=== PATIENT | female | born 1995 | race Caucasian/White ===

== ENCOUNTER 2020-10-10 10:22 | Inpatient (IN) | payer MEDICAID ==
[2020-10-10] MEDS ORDERED: Ondansetron 4 MG/2 ML SDV IVPUSH PRN ×2 (19:22→21:28)
[2020-10-10] MEDS ORDERED: Sodium Chloride 0.9% 10 ML Syringe FLUSH PRN (19:22)
[2020-10-10] MEDS ORDERED: Nalbuphine 10 MG/1 ML Vial IVPUSH PRN (19:22)
--- NOTE | 2020-10-10 19:25 | PCM.LDHP ---
L&D History of Present Illness - General Date of Service: 10/10/20 Admit Problem/Dx: Patient Status Order with Admit Dx/Problem 10/10/20 19:23 Patient Status [ADT] Routine Admission Diagnosis/Problem Admission Diagnosis/Problem Normal in third trimester Source of Information: Patient History Limitations: Reports: No Limitations - History of Present Illness Introduction:: Patient is a 25 y/o at 40 0/7 wks who presents for elective IOL. Doing well. 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): Psychiatric History: Reports: Depression Dermatologic History: Reports: Eczema - Past Surgical History HEENT Surgical History: Reports: Oral Surgery (tooth extraction), Tonsillectomy GI Surgical History: Reports: Appendectomy Social & Family History - Tobacco Use Tobacco Use Status *Q: Former Tobacco User - Alcohol Use Alcohol Use History: No - Recreational Drug Use Recreational Drug Use: No H&P Review of Systems - Review of Systems: Review Of Systems: See Below General: Reports: No Symptoms Pulmonary: Reports: No Symptoms Cardiovascular: Reports: No Symptoms Gastrointestinal: Reports: No Symptoms Genitourinary: Reports: No Symptoms Musculoskeletal: Reports: No Symptoms Psychiatric: Reports: No Symptoms Neurological: Reports: No Symptoms L&D Exam - Exam Exam: See Below - OB Specific Contraction Intensity: Irritability Movement: Active Heart Tones: Present Heart Tones per Min: 140 Heart Rate (FHR) Variability: Moderate (6-25 bmp) Presentation: Vertex - Rose Score Rose Score Cervix Position: Midposition Rose Score Consistency: Medium Rose Score Effacement: 51-70% Rose Score Dilation: 1-2 cm Rose Score Infant's Station: -2 Rose Score Total: 6 - Exam General: Alert, Oriented, Cooperative Lungs: Clear to Auscultation, Normal Respiratory Effort Cardiovascular: Regular Rate, Regular Rhythm GI/Abdominal Exam: Soft, Non-Tender Genitourinary: Normal external exam Extremities: Normal Inspection Skin: Warm, Dry, Intact - Patient Data Result Diagrams: 10/10/20 19:48 - Problem List (1) 40 weeks gestation of SNOMED Code(s): 82126359 ICD Code: Z3A.40 - 40 WEEKS GESTATION OF Status: Acute Current Visit: Yes Problem List Initiated/Reviewed/Updated: Yes Orders Last 24hrs: Active Orders 24 hr Category Date Time Status Patient Status [ADT] Routine ADT 10/10/20 19:23 Ordered Communication Order [RC] ASDIRECTED Care 10/10/20 19:23 Ordered Communication Order [RC] ASDIRECTED Care 10/10/20 19:23 Ordered Communication Order [RC] ASDIRECTED Care 10/10/20 19:23 Ordered Heart Tones [RC] ASDIRECTED Care 10/10/20 19:23 Ordered Monitoring [RC] INTERMITTENT Care 10/10/20 19:23 Ordered Non Stress Test [RC] PER UNIT ROUTINE Care 10/10/20 19:23 Ordered Notify Provider [RC] ASDIRECTED Care 10/10/20 19:23 Ordered Notify Provider [RC] PRN Care 10/10/20 19:23 Ordered Peripheral IV Care [RC] . DIRECTED Care 10/10/20 19:23 Ordered Up ad Samara [RC] ASDIRECTED Care 10/10/20 19:23 Ordered Vaginal Exam [RC] ASDIRECTED Care 10/10/20 19:23 Ordered Vital Signs [RC] ASDIRECTED Care 10/10/20 19:23 Ordered Regular Diet [DIET] Diet 10/10/20 Dinner Ordered CBC W/O DIFF,HEMOGRAM [HEME] Routine Lab 10/10/20 19:22 Ordered CORONAVIRUS COVID-19 TYSON [MOLEC] Stat Lab 10/10/20 19:24 Ordered RAPID PLASMA REAGIN,RPR [CHEM] Routine Lab 10/10/20 19:23 Ordered TYPE AND SCREEN [BBK] Routine Lab 10/10/20 19:22 Ordered Lactated Ringers [Ringers, Lactated] 1,000 ml Med 10/10/20 19:30 Ordered IV ASDIRECTED Nalbuphine [Nubain] Med 10/10/20 19:22 Ordered 10 mg IVPUSH Q2H PRN Ondansetron [Zofran] Med 10/10/20 19:22 Ordered 4 mg IVPUSH Q4H PRN Oxytocin/Lactated Ringers [Pitocin in LR 10 Units/1,000 Med 10/10/20 19:30 Ordered ML] 10 unit in 1,000 ml IV .CONTINUOUS Oxytocin/Lactated Ringers [Pitocin in LR 10 Units/1,000 Med 10/10/20 19:30 Ordered ML] 10 unit in 1,000 ml IV TITRATE Sodium Chloride 0.9% [Saline Flush] Med 10/10/20 19:22 Ordered 10 ml FLUSH ASDIRECTED PRN Electronic Heart Tones Ext w TOCO [WOMSER] Oth 10/10/20 19:23 Ordered Routine Electronic Heart Tones Internal [WOMSER] Per Unit Ot 10/10/20 19:23 Ordered Routine Peripheral IV Insertion Adult [OM.PC] Routine Oth 10/10/20 19:23 Ordered Resuscitation Status Routine Resus Stat 10/10/20 19:22 Ordered Assessment/Plan Comment:: * Labs * GBS negative * Cytotec and then pitocin for IOL * Pain management per patient preference * Anticipate
[2020-10-10] MEDS ORDERED: Oxytocin/Lactated Ringers 10 UNIT/1,000 ML BAG IV SCH ×2 (19:30)
[2020-10-10] MEDS ORDERED: Misoprostol 25 MCG (1/4 of 100 MCG) Tab VAG PRN (20:11)
[2020-10-10] MEDS ORDERED: ePHEDrine 50 MG/ML SDV IVPUSH PRN (21:28)
[2020-10-10] MEDS ORDERED: fentaNYL 100 MCG/2 ML SDV EPIDUR PRN (21:28)
[2020-10-10] MEDS ORDERED: Bupivacaine/fentaNYL/NS 100 ML Bag EPIDUR SCH (21:30)
--- NOTE | 2020-10-10 21:33 | PCM.PREANE ---
Preanesthetic Assessment - Procedure Proposed Procedure: Epidural - Anesthesia/Transfusion/Family Hx Anesthesia History: Prior Anesthesia Without Reaction Family History of Anesthesia Reaction: No Transfusion History: No Prior Transfusion(s) Intubation History: Unknown - Review of Systems Pulmonary: No Symptoms (Covid +: off quarantine one week ago/ Former smoker, ETOH: occasionalyy) Cardiovascular: No Symptoms Gastrointestinal: No Symptoms (GERD), Nausea Neurological: No Symptoms (Sciatic nerve issues on the left side) Other: Reports: Sinus Problem (seasonal allergies), Depression, Anxiety - Physical Assessment NPO Status Date: 10/10/20 NPO Status Time: 18:00 Vital Signs: Last Vital Signs Temp 36.7 C 10/10/20 20:25 Pulse 98 10/10/20 20:25 Resp 16 10/10/20 20:25 BP 111/73 10/10/20 20:25 Pulse Ox 100 10/10/20 20:25 Height: 1.83 m Weight: 139.389 kg ASA Class: 3 Mental Status: Alert & Oriented x3 Airway Class: Mallampati = 2 Dentition: Reports: Normal Dentition, Caries Thyro-Mental Finger Breadths: 3 Mouth Opening Finger Breadths: 3 ROM/Head Extension: Full Lungs: Clear to Auscultation, Normal Respiratory Effort Cardiovascular: Regular Rate, Regular Rhythm, No Murmurs - Lab Values: Laboratory Last Values WBC 11.33 K/mm3 (3.98-10.04) H 10/10/20 19:48 RBC 3.63 M/mm3 (3.98-5.22) L 10/10/20 19:48 Hgb 11.7 gm/dl (11.2-15.7) 10/10/20 19:48 Hct 34.6 % (34.1-44.9) 10/10/20 19:48 MCV 95.3 fl (79.4-94.8) H 10/10/20 19:48 MCH 32.2 pg (25.6-32.2) 10/10/20 19:48 MCHC 33.8 g/dl (32.2-35.5) 10/10/20 19:48 RDW Std Deviation 43.9 fL (36.4-46.3) 10/10/20 19:48 Plt Count 168 K/mm3 (182-369) L 10/10/20 19:48 MPV 11.8 fl (9.4-12.3) 10/10/20 19:48 Above labs reviewed and noted and within acceptable ranges to proceed with epidural if desired. 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: Psychiatric History: Reports: Depression Endocrine/Metabolic History: Reports: Obesity/BMI 30+ Hematologic History: Reports: Anemia Dermatologic History: Reports: Eczema - Past Surgical History HEENT Surgical History: Reports: Oral Surgery (tooth extraction), Tonsillectomy GI Surgical History: Reports: Appendectomy - SUBSTANCE USE Tobacco Use Status *Q: Former Tobacco User Recreational Drug Use History: No - HOME MEDS Home Medications: Home Meds Fexofenadine [Sonja] 180 mg PO DAILY 10/10/20 [History] Pnv No.95/Ferrous Fum/Folic AC [Prenavite Tablet] 1 each PO DAILY 10/10/20 [History] - CURRENT (IN HOUSE) MEDS Current Meds: Current Medications Ephedrine Sulfate (Ephedrine 50 Mg/Ml Sdv) 5 mg IVPUSH ASDIRECTED PRN PRN Reason: Hypotension Fentanyl (Fentanyl 100 Mcg/2 Ml Sdv) 100 mcg EPIDUR Q3H PRN PRN Reason: Pain Fentanyl/Bupivacaine HCl (Bupivacaine/Fentanyl/Ns 100 Ml Bag) 100 ml EPIDUR ASDIRECTED WILBERT Oxytocin/Lactated Ringer's (Pitocin In Lr 10 Units/1,000 Ml) 10 unit in 1,000 mls @ 12 mls/hr IV TITRATE WILBERT; Protocol Oxytocin/Lactated Ringer's (Pitocin In Lr 10 Units/1,000 Ml) 10 unit in 1,000 mls @ 500 mls/hr IV .CONTINUOUS WILBERT Lactated Ringer's (Ringers, Lactated) 1,000 mls @ 40 mls/hr IV ASDIRECTED WILBERT Miscellaneous Medication (Phenylephrine Hcl In 0.9% Nacl 1 Mg/10 Ml Syringe) 0.1 mg IVPUSH Q10M PRN PRN Reason: Hypotension Misoprostol (Misoprostol 25 Mcg (1/4 Of 100 Mcg) Tab) 25 mcg VAG Q4HR PRN PRN Reason: cervical ripening Last Admin: 10/10/20 20:20 Dose: 25 mcg Documented by: Nalbuphine HCl (Nalbuphine 10 Mg/1 Ml Vial) 10 mg IVPUSH Q2H PRN PRN Reason: Pain Ondansetron HCl (Ondansetron 4 Mg/2 Ml Sdv) 4 mg IVPUSH Q4H PRN PRN Reason: Nausea/Vomiting Ondansetron HCl (Ondansetron 4 Mg/2 Ml Sdv) 4 mg IVPUSH ONETIME PRN PRN Reason: Nausea/Vomiting Sodium Chloride (Sodium Chloride 0.9% 10 Ml Syringe) 10 ml FLUSH ASDIRECTED PRN PRN Reason: Keep Vein Open
[2020-10-11] MEDS: Lactated Ringers 1,000 ML IV SCH ×2 (00:50→02:34)
--- NOTE | 2020-10-11 04:39 | PCM.PNLD ---
Labor Progress Note - VS & Meds Vital Signs: Last Vital Signs Temp 36.7 C 10/10/20 20:25 Pulse 98 10/10/20 20:25 Resp 16 10/10/20 20:25 BP 111/73 10/10/20 20:25 Pulse Ox 100 10/10/20 20:25 Active Medications: Current Medications Ephedrine Sulfate (Ephedrine 50 Mg/Ml Sdv) 5 mg IVPUSH ASDIRECTED PRN PRN Reason: Hypotension Fentanyl (Fentanyl 100 Mcg/2 Ml Sdv) 100 mcg EPIDUR Q3H PRN PRN Reason: Pain Last Admin: 10/11/20 00:56 Dose: 100 mcg Documented by: Fentanyl/Bupivacaine HCl (Bupivacaine/Fentanyl/Ns 100 Ml Bag) 100 ml EPIDUR ASDIRECTED WILBERT Last Admin: 10/11/20 00:55 Dose: 100 ml Documented by: Oxytocin/Lactated Ringer's (Pitocin In Lr 10 Units/1,000 Ml) 10 unit in 1,000 mls @ 12 mls/hr IV TITRATE WILBERT; Protocol Last Titration: 10/11/20 03:29 Dose: 0 munits/min, 0 mls/hr Documented by: Oxytocin/Lactated Ringer's (Pitocin In Lr 10 Units/1,000 Ml) 10 unit in 1,000 mls @ 500 mls/hr IV .CONTINUOUS WILBERT Lactated Ringer's (Ringers, Lactated) 1,000 mls @ 40 mls/hr IV ASDIRECTED WILBERT Last Admin: 10/11/20 02:34 Dose: 40 mls/hr Documented by: Miscellaneous Medication (Phenylephrine Hcl In 0.9% Nacl 1 Mg/10 Ml Syringe) 0.1 mg IVPUSH Q10M PRN PRN Reason: Hypotension Misoprostol (Misoprostol 25 Mcg (1/4 Of 100 Mcg) Tab) 25 mcg VAG Q4HR PRN PRN Reason: cervical ripening Last Admin: 10/10/20 20:20 Dose: 25 mcg Documented by: Nalbuphine HCl (Nalbuphine 10 Mg/1 Ml Vial) 10 mg IVPUSH Q2H PRN PRN Reason: Pain Ondansetron HCl (Ondansetron 4 Mg/2 Ml Sdv) 4 mg IVPUSH Q4H PRN PRN Reason: Nausea/Vomiting Ondansetron HCl (Ondansetron 4 Mg/2 Ml Sdv) 4 mg IVPUSH ONETIME PRN PRN Reason: Nausea/Vomiting Sodium Chloride (Sodium Chloride 0.9% 10 Ml Syringe) 10 ml FLUSH ASDIRECTED PRN PRN Reason: Keep Vein Open - Uterine Contractions Uterine Monitoring Mode: External [place] Contraction Intensity: Mild to Moderate Uterine Resting Tone: Soft - Monitoring Monitor Mode: External Ultrasound Heart Rate (FHR) Baseline: 115 Heart Rate (FHR) Variability: Moderate (6-25 bmp) Accelerations: Present, 15x15 Decelerations: Variable Strip Review: Category II - Vaginal Exam Dilation (cm): 3 Effacement (Percent): 75 Station: -2 Cervical Position: Midposition - Labor Progress (Free Text) Labor Progress: Patient received one dose of Cytotec overnight. Then was transitioned to pitocin up to 4, but had some variables. Currently off and patient comfortable with epidural. Exam shows good change. AROM performed with release of clear fluid. IUPC placed. Continue present management. Will start pitocin again if/when needed
--- NOTE | 2020-10-11 07:00 | PCM.PNLD ---
Labor Progress Note - VS & Meds Vital Signs: Last Vital Signs Temp 36.7 C 10/10/20 20:25 Pulse 98 10/10/20 20:25 Resp 16 10/10/20 20:25 BP 111/73 10/10/20 20:25 Pulse Ox 100 10/10/20 20:25 Active Medications: Current Medications Ephedrine Sulfate (Ephedrine 50 Mg/Ml Sdv) 5 mg IVPUSH ASDIRECTED PRN PRN Reason: Hypotension Fentanyl (Fentanyl 100 Mcg/2 Ml Sdv) 100 mcg EPIDUR Q3H PRN PRN Reason: Pain Last Admin: 10/11/20 00:56 Dose: 100 mcg Documented by: Fentanyl/Bupivacaine HCl (Bupivacaine/Fentanyl/Ns 100 Ml Bag) 100 ml EPIDUR ASDIRECTED WILBERT Last Admin: 10/11/20 00:55 Dose: 100 ml Documented by: Oxytocin/Lactated Ringer's (Pitocin In Lr 10 Units/1,000 Ml) 10 unit in 1,000 mls @ 12 mls/hr IV TITRATE WILBERT; Protocol Last Titration: 10/11/20 03:29 Dose: 0 munits/min, 0 mls/hr Documented by: Oxytocin/Lactated Ringer's (Pitocin In Lr 10 Units/1,000 Ml) 10 unit in 1,000 mls @ 500 mls/hr IV .CONTINUOUS WILBERT Lactated Ringer's (Ringers, Lactated) 1,000 mls @ 40 mls/hr IV ASDIRECTED WILBERT Last Admin: 10/11/20 02:34 Dose: 40 mls/hr Documented by: Miscellaneous Medication (Phenylephrine Hcl In 0.9% Nacl 1 Mg/10 Ml Syringe) 0.1 mg IVPUSH Q10M PRN PRN Reason: Hypotension Misoprostol (Misoprostol 25 Mcg (1/4 Of 100 Mcg) Tab) 25 mcg VAG Q4HR PRN PRN Reason: cervical ripening Last Admin: 10/10/20 20:20 Dose: 25 mcg Documented by: Nalbuphine HCl (Nalbuphine 10 Mg/1 Ml Vial) 10 mg IVPUSH Q2H PRN PRN Reason: Pain Ondansetron HCl (Ondansetron 4 Mg/2 Ml Sdv) 4 mg IVPUSH Q4H PRN PRN Reason: Nausea/Vomiting Ondansetron HCl (Ondansetron 4 Mg/2 Ml Sdv) 4 mg IVPUSH ONETIME PRN PRN Reason: Nausea/Vomiting Sodium Chloride (Sodium Chloride 0.9% 10 Ml Syringe) 10 ml FLUSH ASDIRECTED PRN PRN Reason: Keep Vein Open - Uterine Contractions Uterine Monitoring Mode: IUPC Contraction Intensity: Moderate to Strong Uterine Resting Tone: Soft - Monitoring Monitor Mode: External Ultrasound Heart Rate (FHR) Baseline: 115 Heart Rate (FHR) Variability: Moderate (6-25 bmp) Accelerations: Present, 15x15 Decelerations: Early, Variable Strip Review: Category II - Vaginal Exam Dilation (cm): 5 Effacement (Percent): 80 Station: -1 Cervical Position: Midposition - Labor Progress (Free Text) Labor Progress: Doing well. Making change. Have not needed to restart pitocin. Continue present management
[2020-10-11] MEDS ORDERED: Bupivacaine 0.25% 10 ML SDV ONE (10:00)
--- NOTE | 2020-10-11 11:33 | PCM.DEL ---
L & D Note - General Info Date of Service: 10/11/20 - Delivery Note Labor: Induced by ARM Cervical Ripening Method: Misoprostil Delivery Outcome: Livebirth Infant Delivery Method: Spontaneous Vaginal Delivery-Single Delivery Mode: Spontaneous Presentation: Right Occiput Anterior (DEBBIE) Nuchal Cord: None Anesthesia Type: Epidural Amniotic Fluid Description: Clear Episiotomy Type: None Laceration: 2nd Degree Suture type: Vicryl Suture size: 2-0 Placenta: Intact, Spontaneous Cord: 3 Vessels Estimated Blood Loss: 100 : Bulb Syringe, Stimulated, Warmed, [place] Used, Warmer Used Delivery Comments (Free Text/Narrative):: Patient found to be complete and began pushing. With maternal pushing effort head delivered from DEBBIE presentation. No nuchal cord present. With gentle downward traction shoulders and body delivered. Infant placed on maternal abdomen. Cord clamped and cut. Cord blood obtained. Placenta allowed time to separate and expelled intact. Inspection of the perineum showed a 2nd degree laceration which was repaired with a 2-0 Vicryl in the typical fashion - General Info Date of Service: 10/11/20 - Patient Data Vitals - Most Recent: Last Vital Signs Temp 36.7 C 10/10/20 20:25 Pulse 98 10/10/20 20:25 Resp 16 10/10/20 20:25 BP 111/73 10/10/20 20:25 Pulse Ox 100 10/10/20 20:25 Weight - Most Recent: 139.389 kg I&O - Last 24 Hours: Intake & Output 10/10/20 10/11/20 10/11/20 22:59 06:59 14:59 Intake Total 1000 Balance 1000 Lab Results Last 24 Hours: - Problem List & Annotations (1) 40 weeks gestation of SNOMED Code(s): 75678292 Code(s): Z3A.40 - 40 WEEKS GESTATION OF Status: Acute Current Visit: Yes (2) Vaginal delivery SNOMED Code(s): 684397108 Code(s): O80 - ENCOUNTER FOR FULL-TERM UNCOMPLICATED DELIVERY Status: Acute Current Visit: Yes - Problem List Review Problem List Initiated/Reviewed/Updated: Yes - My Orders Last 24 Hours: My Active Orders 10/10/20 Dinner Regular Diet [DIET] 10/10/20 19:22 Nalbuphine [Nubain] 10 mg IVPUSH Q2H PRN Ondansetron [Zofran] 4 mg IVPUSH Q4H PRN Sodium Chloride 0.9% [Saline Flush] 10 ml FLUSH ASDIRECTED PRN Resuscitation Status Routine 10/10/20 19:23 Patient Status [ADT] Routine Communication Order [RC] ASDIRECTED Communication Order [RC] ASDIRECTED Communication Order [RC] ASDIRECTED Notify Provider [RC] ASDIRECTED Notify Provider [RC] PRN Peripheral IV Care [RC] . DIRECTED Up ad Samara [RC] ASDIRECTED Electronic Heart Tones Ext w TOCO [WOMSER] Routine Electronic Heart Tones Internal [WOMSER] Per Unit Routine Peripheral IV Insertion Adult [OM.PC] Routine 10/10/20 19:30 Lactated Ringers [Ringers, Lactated] 1,000 ml IV ASDIRECTED Oxytocin/Lactated Ringers [Pitocin in LR 10 Units/1,000 ML] 10 unit in 1,000 ml IV .CONTINUOUS Oxytocin/Lactated Ringers [Pitocin in LR 10 Units/1,000 ML] 10 unit in 1,000 ml IV TITRATE 10/10/20 19:48 HEP C VIRUS AB [REF] Stat 10/10/20 20:11 miSOPROStoL [Cytotec] 25 mcg VAG Q4HR PRN - Assessment Assessment:: PPD#0 - Plan Plan:: * Routine cares * Breast feeding * Discharge home in 1-2 days
[2020-10-11] MEDS ORDERED: Benzocaine/Menthol 20%-0.5% Spray 56 GM Canister TOP PRN (11:48)
[2020-10-11] MEDS ORDERED: Acetaminophen 325 MG Tab PO PRN (11:48)
[2020-10-11] MEDS ORDERED: Witch Hazel Medicated Pads 40/Jar TOP PRN (11:48)
[2020-10-11] MEDS: Ibuprofen 600 MG Tab PO PRN ×2 (12:23→22:46)
[2020-10-11] MEDS: Docusate Sodium 100 MG Cap PO PRN (12:23)
--- NOTE | 2020-10-12 07:16 | PCM.PNPP ---
- General Info Date of Service: 10/12/20 Functional Status: Reports: Pain Controlled, Tolerating Diet, Ambulating, Urinating - Review of Systems General: Reports: No Symptoms Pulmonary: Reports: No Symptoms Cardiovascular: Reports: No Symptoms Gastrointestinal: Reports: No Symptoms Genitourinary: Reports: No Symptoms Musculoskeletal: Reports: No Symptoms Neurological: Reports: No Symptoms - Patient Data Vital Signs - Most Recent: Last Vital Signs Temp 36.6 C 10/12/20 03:07 Pulse 84 10/12/20 03:07 Resp 16 10/12/20 03:07 BP 120/61 10/12/20 03:07 Pulse Ox 96 10/12/20 03:07 Weight - Most Recent: 139.389 kg Med Orders - Current: Current Medications Acetaminophen (Acetaminophen 325 Mg Tab) 650 mg PO Q4H PRN PRN Reason: mild pain or fever Benzocaine/Menthol (Benzocaine/Menthol 20%-0.5% [place] 56 Gm Canister) 0 gm TOP ASDIRECTED PRN PRN Reason: Perineal Comfort Measure Last Admin: 10/11/20 12:22 Dose: 1 canister Documented by: Docusate Sodium (Docusate Sodium 100 Mg Cap) 100 mg PO BID PRN PRN Reason: Constipation Last Admin: 10/11/20 12:23 Dose: 100 mg Documented by: Ibuprofen (Ibuprofen 600 Mg Tab) 600 mg PO Q6H PRN PRN Reason: Mild pain or fever Last Admin: 10/11/20 22:46 Dose: 600 mg Documented by: Laz Moreno (Laz Zimmermanel Medicated Pads 40/Jar) 1 pad TOP ASDIRECTED PRN PRN Reason: Perineal Comfort Measure Last Admin: 10/11/20 12:22 Dose: 1 tub Documented by: Discontinued Medications Bupivacaine HCl (Bupivacaine 0.25% 10 Ml Sdv) 10 ml .ROUTE .STK-MED ONE Stop: 10/11/20 10:01 Ephedrine Sulfate (Ephedrine 50 Mg/Ml Sdv) 5 mg IVPUSH ASDIRECTED PRN PRN Reason: Hypotension Fentanyl (Fentanyl 100 Mcg/2 Ml Sdv) 100 mcg EPIDUR Q3H PRN PRN Reason: Pain Last Admin: 10/11/20 00:56 Dose: 100 mcg Documented by: Fentanyl/Bupivacaine HCl (Bupivacaine/Fentanyl/Ns 100 Ml Bag) 100 ml EPIDUR ASDIRECTED WILBERT Last Admin: 10/11/20 00:55 Dose: 100 ml Documented by: Oxytocin/Lactated Ringer's (Pitocin In Lr 10 Units/1,000 Ml) 10 unit in 1,000 mls @ 12 mls/hr IV TITRATE WILBERT; Protocol Last Titration: 10/11/20 03:29 Dose: 0 munits/min, 0 mls/hr Documented by: Oxytocin/Lactated Ringer's (Pitocin In Lr 10 Units/1,000 Ml) 10 unit in 1,000 mls @ 500 mls/hr IV .CONTINUOUS WILBERT Lactated Ringer's (Ringers, Lactated) 1,000 mls @ 40 mls/hr IV ASDIRECTED [facility] Last Admin: 10/11/20 02:34 Dose: 40 mls/hr Documented by: Miscellaneous Medication (Phenylephrine Hcl In 0.9% Nacl 1 Mg/10 Ml Syringe) 0.1 mg IVPUSH Q10M PRN PRN Reason: Hypotension Misoprostol (Misoprostol 25 Mcg (1/4 Of 100 Mcg) Tab) 25 mcg VAG Q4HR PRN PRN Reason: cervical ripening Last Admin: 10/10/20 20:20 Dose: 25 mcg Documented by: Nalbuphine HCl (Nalbuphine 10 Mg/1 Ml Vial) 10 mg IVPUSH Q2H PRN PRN Reason: Pain Ondansetron HCl (Ondansetron 4 Mg/2 Ml Sdv) 4 mg IVPUSH Q4H PRN PRN Reason: Nausea/Vomiting Ondansetron HCl (Ondansetron 4 Mg/2 Ml Sdv) 4 mg IVPUSH ONETIME PRN PRN Reason: Nausea/Vomiting Sodium Chloride (Sodium Chloride 0.9% 10 Ml Syringe) 10 ml FLUSH ASDIRECTED PRN PRN Reason: Keep Vein Open - Interaction Disposition, : [place] in Room with Family Interaction: Holding Feeding: Attempted ; Nursed Fair/Poor Support Person: - Recovery Exam Fundal Tone: Firm Fundal Level: 1 Fingerbreadths Below Umbilicus Fundal Placement: Midline Lochia Amount: Scant, Small Lochia Color: Rubra/Red Perineum Description: Other (see below) Other Perinuem Description: 2nd degree laceration with repair Episiotomy/Laceration: Approximated Bladder Status: Voiding Urinary Elimination: Voided - Exam General: Alert, Oriented, Cooperative GI/Abdominal Exam: Soft, Non-Tender Extremities: Normal Inspection - Problem List & Annotations (1) 40 weeks gestation of SNOMED Code(s): 46594771 Code(s): Z3A.40 - 40 WEEKS GESTATION OF Status: Acute Current Visit: Yes (2) Vaginal delivery SNOMED Code(s): 112376315 Code(s): O80 - ENCOUNTER FOR FULL-TERM UNCOMPLICATED DELIVERY Status: Acute Current Visit: Yes - Problem List Review Problem List Initiated/Reviewed/Updated: Yes - My Orders Last 24 Hours: My Active Orders 10/11/20 Lunch Regular Diet [DIET] 10/11/20 11:48 Acetaminophen [TylenoL] 650 mg PO Q4H PRN Benzocaine/Menthol [Dermoplast Pain Relief [place]] See Dose Instructions TOP ASDIRECTED PRN Docusate Sodium [Colace] 100 mg PO BID PRN Ibuprofen [Motrin] 600 mg PO Q6H PRN witch Tiffanie [Tucks] 1 pad TOP ASDIRECTED PRN Heat Therapy [OM.PC] PRN 10/11/20 11:48 Activity as Tolerated [RC] PER UNIT ROUTINE Vital Signs [RC] 03,09,15,21 Assess Lochia [WOMSER] Per Unit Routine Assess Uterine Involution [WOMSER] Per Unit Routine Breast Pump [WOMSER] Per Unit Routine Ice Therapy [OM.PC] Per Unit Routine Perineal Care [OM.PC] Per Unit Routine Peripheral IV Discontinue [OM.PC] Routine Sitz Bath [OM.PC] Per Unit Routine 10/12/20 11:48 Heat Therapy [OM.PC] PRN - Assessment Assessment:: PPD#1 - Plan Plan:: * Routine cares * Breast feeding * Discharge home today vs tomorrow pending patient preference
[2020-10-12] MEDS: Ibuprofen 600 MG Tab PO PRN ×2 (07:27→13:55)
--- NOTE | 2020-10-12 08:10 | PCM48HPAN ---
Post Anesthesia Note - EVALUATION WITHIN 48HRS OF ANESTHETIC Vital Signs in Normal Range: Yes Patient Participated in Evaluation: Yes Respiratory Function Stable: Yes Airway Patent: Yes Cardiovascular Function Stable: Yes Hydration Status Stable: Yes Pain Control Satisfactory: Yes Nausea and Vomiting Control Satisfactory: Yes Mental Status Recovered: Yes Vital Signs: Last Vital Signs Temp 36.6 C 10/12/20 03:07 Pulse 84 10/12/20 03:07 Resp 16 10/12/20 03:07 BP 120/61 10/12/20 03:07 Pulse Ox 96 10/12/20 03:07
[2020-10-12] MEDS: Docusate Sodium 100 MG Cap PO PRN (13:55)
--- NOTE | 2020-10-12 17:06 | PCM.DCSUM1 ---
Discharge Summary - Discharge Data Discharge Date: 10/12/20 Discharge Disposition: Home, Self-Care 01 Condition: Good - Referral to Home Health Primary Care Physician: Armida Duong MD - Discharge Diagnosis/Problem(s) (1) 40 weeks gestation of SNOMED Code(s): 05969111 ICD Code: Z3A.40 - 40 WEEKS GESTATION OF Status: Acute Current Visit: Yes (2) Vaginal delivery SNOMED Code(s): 539958457 ICD Code: O80 - ENCOUNTER FOR FULL-TERM UNCOMPLICATED DELIVERY Status: Acute Current Visit: Yes - Patient Summary/Data Complications: None Consults: None Recommended Follow-up Testing/Procedures: Follow up in 3 weeks for check Hospital Course: 25 y/o at 40 07 wks presented for elective IOL. Done with cytotec and AROM. Progressed well and underwent an uncomplicated . See delivery note. did well and was discharged home on PPD#1 - Patient Instructions Diet: Regular Diet as Tolerated Activity: As Tolerated Activity, Other: Pelvic rest for 6 weeks Driving: May Drive Today Showering/Bathing: May Shower Showering/Bathing, Other: May Bathe Notify Provider of: Fever, Increased Pain, Swelling and Redness, Drainage, Nausea and/or Vomiting - Discharge Plan *PRESCRIPTION DRUG MONITORING PROGRAM REVIEWED*: No *COPY OF PRESCRIPTION DRUG MONITORING REPORT IN PATIENT TIMBO: No Home Medications: Home Meds Pnv No.95/Ferrous Fum/Folic AC [ Vitamins Tablet] 1 each PO DAILY 10/10/20 [History] Docusate Sodium [Colace] 100 mg PO BID PRN cap 10/12/20 [Rx] Ibuprofen [Motrin] 600 mg PO Q6H PRN tablet 10/12/20 [Rx] Patient Handouts: and Inducing , Care After Vaginal Delivery Referrals: Armida Duong MD [Primary Care Provider] - (3 weeks for check ) - Discharge Summary/Plan Comment DC Time >30 min.: No - Patient Data Vitals - Most Recent: Last Vital Signs Temp 36.9 C 10/12/20 11:58 Pulse 71 10/12/20 11:58 Resp 14 10/12/20 11:58 BP 116/78 10/12/20 11:58 Pulse Ox 98 10/12/20 11:58 Weight - Most Recent: 139.389 kg I&O - Last 24 hours: Intake & Output 10/12/20 10/12/20 10/12/20 06:59 14:59 22:59 Intake Total 120 Balance 120 Med Orders - Current: Current Medications Acetaminophen (Acetaminophen 325 Mg Tab) 650 mg PO Q4H PRN PRN Reason: mild pain or fever Benzocaine/Menthol (Benzocaine/Menthol 20%-0.5% [place] 56 Gm Canister) 0 gm TOP ASDIRECTED PRN PRN Reason: Perineal Comfort Measure Last Admin: 10/11/20 12:22 Dose: 1 canister Documented by: Docusate Sodium (Docusate Sodium 100 Mg Cap) 100 mg PO BID PRN PRN Reason: Constipation Last Admin: 10/12/20 13:55 Dose: 100 mg Documented by: Ibuprofen (Ibuprofen 600 Mg Tab) 600 mg PO Q6H PRN PRN Reason: Mild pain or fever Last Admin: 10/12/20 13:55 Dose: 600 mg Documented by: Laz Moreno (Laz Moreno Medicated Pads 40/Jar) 1 pad TOP ASDIRECTED PRN PRN Reason: Perineal Comfort Measure Last Admin: 10/11/20 12:22 Dose: 1 tub Documented by: Discontinued Medications Bupivacaine HCl (Bupivacaine 0.25% 10 Ml Sdv) 10 ml .ROUTE .STK-MED ONE Stop: 10/11/20 10:01 Ephedrine Sulfate (Ephedrine 50 Mg/Ml Sdv) 5 mg IVPUSH ASDIRECTED PRN PRN Reason: Hypotension Fentanyl (Fentanyl 100 Mcg/2 Ml Sdv) 100 mcg EPIDUR Q3H PRN PRN Reason: Pain Last Admin: 10/11/20 00:56 Dose: 100 mcg Documented by: Fentanyl/Bupivacaine HCl (Bupivacaine/Fentanyl/Ns 100 Ml Bag) 100 ml EPIDUR ASDIRECTED WILBERT Last Admin: 10/11/20 00:55 Dose: 100 ml Documented by: Oxytocin/Lactated Ringer's (Pitocin In Lr 10 Units/1,000 Ml) 10 unit in 1,000 mls @ 12 mls/hr IV TITRATE WILBERT; Protocol Last Titration: 10/11/20 03:29 Dose: 0 munits/min, 0 mls/hr Documented by: Oxytocin/Lactated Ringer's (Pitocin In Lr 10 Units/1,000 Ml) 10 unit in 1,000 mls @ 500 mls/hr IV .CONTINUOUS WILBERT Lactated Ringer's (Ringers, Lactated) 1,000 mls @ 40 mls/hr IV ASDIRECTED WILBERT Last Admin: 10/11/20 02:34 Dose: 40 mls/hr Documented by: Miscellaneous Medication (Phenylephrine Hcl In 0.9% Nacl 1 Mg/10 Ml Syringe) 0.1 mg IVPUSH Q10M PRN PRN Reason: Hypotension Misoprostol (Misoprostol 25 Mcg (1/4 Of 100 Mcg) Tab) 25 mcg VAG Q4HR PRN PRN Reason: cervical ripening Last Admin: 10/10/20 20:20 Dose: 25 mcg Documented by: Nalbuphine HCl (Nalbuphine 10 Mg/1 Ml Vial) 10 mg IVPUSH Q2H PRN PRN Reason: Pain Ondansetron HCl (Ondansetron 4 Mg/2 Ml Sdv) 4 mg IVPUSH Q4H PRN PRN Reason: Nausea/Vomiting Ondansetron HCl (Ondansetron 4 Mg/2 Ml Sdv) 4 mg IVPUSH ONETIME PRN PRN Reason: Nausea/Vomiting Sodium Chloride (Sodium Chloride 0.9% 10 Ml Syringe) 10 ml FLUSH ASDIRECTED PRN PRN Reason: Keep Vein Open
== END 2020-10-12 21:20 | disposition home or self-care (01) | DRG 807 ==
LOC: JD.OB 10:22 → OBSVTOIN 10-11 10:22 → JD.OB 10-11 10:51
PROVIDERS: ADMIT Obstetrics & Gynecology; ATTEND Obstetrics & Gynecology
PROC: 10E0XZZ Delivery of Products of Conception, External Approach (ICD-10-PCS; principal; 2020-10-11)
PROC: 0KQM0ZZ Repair Perineum Muscle, Open Approach (ICD-10-PCS; 2020-10-11)
PROC: 10907ZC Drainage of Amniotic Fluid, Therapeutic from Products of Conception, Via Natural or Artificial Opening (ICD-10-PCS; 2020-10-11)
PROC: 3E0P7VZ Introduction of Hormone into Female Reproductive, Via Natural or Artificial Opening (ICD-10-PCS; 2020-10-11)
PROC: 3E033VJ Introduction of Other Hormone into Peripheral Vein, Percutaneous Approach (ICD-10-PCS; 2020-10-11)
PROC: 10H07YZ Insertion of Other Device into Products of Conception, Via Natural or Artificial Opening (ICD-10-PCS; 2020-10-11)
PROC: 3E0R3BZ Introduction of Anesthetic Agent into Spinal Canal, Percutaneous Approach (ICD-10-PCS; 2020-10-11)
PROC: 00HU33Z Insertion of Infusion Device into Spinal Canal, Percutaneous Approach (ICD-10-PCS; 2020-10-11)
DX: O99.214 Obesity complicating childbirth (principal); Z37.0 Single live birth; E66.9 Obesity, unspecified; O70.1 Second degree perineal laceration during delivery; O76 Abnormality in fetal heart rate and rhythm complicating labor and delivery; Z87.891 Personal history of nicotine dependence; Z90.49 Acquired absence of other specified parts of digestive tract; Z88.0 Allergy status to penicillin; Z3A.40 40 weeks gestation of pregnancy
CPT/HCPCS: 01967; 36415; 51702; 59025; 59409; 85027; 86592; 86803; 86850; 86900; 86901; A9270-GY; J2590; J3010; J3490; J7120

== ENCOUNTER 2020-11-19 10:18 | Emergency (ER) | payer MEDICAID ==
--- NOTE | 2020-11-19 11:11 | EDM.PDOC ---
ED HPI GENERAL MEDICAL PROBLEM - General Chief Complaint: Allergic Reaction Stated Complaint: ALLERGIC RX TO PRESCRIPTION Time Seen by Provider: 11/19/20 10:51 Source of Information: Reports: Patient History Limitations: Reports: No Limitations - History of Present Illness INITIAL COMMENTS - FREE TEXT/NARRATIVE: The patient presents with an allergic reaction. The patient had a rash on her right upper breast/chest area. She saw Dr Duong and was put on Keflex. She then developed a rash around her mouth. She has no difficulty breathing or swelling in her throat. She has no rash anywhere else. The rash on her face is different from the one she had on her chest. She is allergic to penicillin. She has had cephalosporins before. She is 5 weeks post delivery and she is breast feeding. Onset: Gradual Duration: Day(s): Location: Reports: Face Quality: Reports: Burning Severity: Mild Improves with: Reports: None Worsens with: Reports: None Associated Symptoms: Reports: No Other Symptoms Face/Facial Pain Score (Numeric/FACES): 2 - Related Data Allergies Allergy/AdvReac Type Severity Reaction Status Date / Time Penicillins Allergy Cannot Verified 11/19/20 10:43 Remember Home Meds: Home Meds Pnv No.95/Ferrous Fum/Folic AC [ Vitamins Tablet] 1 each PO DAILY 10/10/20 [History] Ibuprofen [Motrin] 600 mg PO Q6H PRN tablet 10/12/20 [Rx] predniSONE [Prednisone] 40 mg PO DAILY #10 tablet 11/19/20 [Rx] Past Medical History HEENT History: Reports: Allergic Rhinitis 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 Age 15 [place] teeth GI Surgical History: Reports: Appendectomy Social & Family History - Family History Family Medical History: No Pertinent Family History - Tobacco Use Tobacco Use Status *Q: Never Tobacco User - Caffeine Use Caffeine Use: Reports: None - Recreational Drug Use Recreational Drug Use: No ED ROS ALLERGIC REACTION - Review of Systems Review Of Systems: See Below Constitutional: Reports: No Symptoms HEENT: Reports: Other (facial rash) Respiratory: Reports: No Symptoms Cardiovascular: Reports: No Symptoms Endocrine: Reports: No Symptoms GI/Abdominal: Reports: No Symptoms : Reports: No Symptoms Musculoskeletal: Reports: No Symptoms ED EXAM GENERAL NO PERIP PULSE - Physical Exam Exam: See Below Exam Limited By: No Limitations General Appearance: Alert, No Apparent Distress Ears: Normal External Exam Nose: Normal Inspection Throat/Mouth: Other (Erythema around the mouth with some edema) Head: Atraumatic, Normocephalic Neck: Normal Inspection Respiratory/Chest: No Respiratory Distress, Lungs Clear, Normal Breath Sounds Cardiovascular: Regular Rate, Rhythm, No Edema, No Murmur, Other (erythema with papulse to the right upper chest) GI/Abdominal: Soft, Non-Tender, No Organomegaly, No Mass Back Exam: Normal Inspection Extremities: Normal Inspection Course - Vital Signs Last Recorded V/S: Last Vital Signs Temp 98.4 F 11/19/20 10:45 Pulse 84 11/19/20 10:45 Resp 13 11/19/20 10:45 BP 117/78 11/19/20 10:45 Pulse Ox 99 11/19/20 10:45 - Re-Assessments/Exams Free Text/Narrative Re-Assessment/Exam: 11/19/20 11:14 I feel she is having an allergic reaction. I will have her stop keflex and get her on prednisone, pepcid and claritin. She can take benadryl as needed. Departure - Departure Time of Disposition: 11:20 Disposition: Home, Self-Care 01 Condition: Good Clinical Impression: Allergic reaction Qualifiers: Encounter type: initial encounter Qualified Code(s): T78.40XA - Allergy, unspecified, initial encounter - Discharge Information *PRESCRIPTION DRUG MONITORING PROGRAM REVIEWED*: Not Applicable *COPY OF PRESCRIPTION DRUG MONITORING REPORT IN PATIENT TIMBO: Not Applicable Prescriptions: predniSONE [Prednisone] 40 mg PO DAILY #10 tablet Referrals: PCP,None [Primary Care Provider] - Additional Instructions: Stop the keflex. Dry some hydrocodone on the rash on your chest. You can get that over the counter. Take the prednisone 40mg daily for 5 days. Take pepcid daily for a week. Take claritin daily for a week. You can try some benadryl every 6 hours as needed for worsening allergy symptoms. Please return if you are worse. Sepsis Event Note (ED) - Evaluation Sepsis Screening Result: No Definite Risk - Focused Exam Vital Signs: Vital Signs Temp Pulse Resp BP Pulse Ox 11/19/20 10:45 98.4 F 84 13 117/78 99
[2020-11-19] MEDS ORDERED: predniSONE 20 MG Tab PO ONE (11:16)
== END 2020-11-19 11:33 | disposition home or self-care (01) ==
LOC: JD.ED 10:18
DX: O9A.23 Injury, poisoning and certain other consequences of external causes complicating the puerperium (principal); T78.40XA Allergy, unspecified, initial encounter; O99.215 Obesity complicating the puerperium; E66.9 Obesity, unspecified; Z88.0 Allergy status to penicillin
CPT/HCPCS: 99283; J7512

== ENCOUNTER 2021-01-31 20:21 | Emergency (ER) | payer MEDICAID ==
--- NOTE | 2021-01-31 21:08 | EDM.PDOC ---
ED HPI GENERAL MEDICAL PROBLEM - General Chief Complaint: Abdominal Pain Stated Complaint: RT ABDOMINAL PAIN Time Seen by Provider: 01/31/21 21:01 - History of Present Illness INITIAL COMMENTS - FREE TEXT/NARRATIVE: 26-year-old female presents the emergency room with abdominal pain. She has had on and off abdominal pain for the last several months. It seems to be aggravated by pizza. And other greasy or foods. The pain is right upper quadrant. She does not have associated nausea vomiting she has any fevers or chills associated with it. Patient denies any other complaints at this time. No history of prior abdominal surgeries. No diarrhea no constipation Treatments ENGINEERING PROFESSIONALS: Reports: Other (see below) Other Treatments ENGINEERING PROFESSIONALS: none Right Upper Abdomen Pain Score (Numeric/FACES): 4 Right Back Pain Score (Numeric/FACES): 3 - Related Data Allergies Allergy/AdvReac Type Severity Reaction Status Date / Time cephalexin Allergy Severe Rash Verified 01/31/21 20:46 Penicillins Allergy Severe Cannot Verified 01/31/21 20:46 Remember Home Meds: Home Meds Ibuprofen [Motrin] 600 mg PO Q6H PRN tablet 10/12/20 [Rx] predniSONE [Prednisone] 10 mg PO BID 01/31/21 [History] Hydrocodone/Acetaminophen [HYDROcodone-Acetaminophen 5-325 MG] 1 - 2 each PO Q6H PRN #20 tab 02/01/21 [Rx] Ondansetron [Ondansetron ODT] 4 mg PO Q6H PRN #12 tab.rapdis 02/01/21 [Rx] Past Medical History HEENT History: Reports: Allergic Rhinitis 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 Age 15 [place] teeth GI Surgical History: Reports: Appendectomy Social & Family History - Family History Family Medical History: No Pertinent Family History - Tobacco Use Tobacco Use Status *Q: Current Every Day Tobacco User Years of Tobacco use: 9 Packs/Tins Daily: 0.5 - Caffeine Use Caffeine Use: Reports: Coffee, Energy Drinks - Recreational Drug Use Recreational Drug Use: No ED ROS GENERAL - Review of Systems Review Of Systems: See Below Constitutional: Reports: No Symptoms HEENT: Reports: No Symptoms Respiratory: Reports: No Symptoms Cardiovascular: Reports: No Symptoms GI/Abdominal: Reports: Abdominal Pain. Denies: Constipation, Diarrhea, Nausea, Vomiting : Reports: No Symptoms Musculoskeletal: Reports: No Symptoms Neurological: Reports: No Symptoms Psychiatric: Reports: No Symptoms ED EXAM, GENERAL - Physical Exam Exam: See Below Exam Limited By: No Limitations General Appearance: Alert, No Apparent Distress Ears: Normal External Exam, Normal Canal Head: Atraumatic, Normocephalic Neck: Normal Inspection, Supple, Non-Tender, Full Range of Motion. No: Lymphadenopathy (L), Lymphadenopathy (R) Respiratory/Chest: No Respiratory Distress, Lungs Clear, Normal Breath Sounds Cardiovascular: Regular Rate, Rhythm, No Edema, No Murmur Peripheral Pulses: 4+: Dorsalis Pedis (R) GI/Abdominal: Normal Bowel Sounds, Soft, No Organomegaly, Tender (Patient has right upper quadrant discomfort in the vicinity of the gallbladder no rigidity rebound or guarding appreciated with the remainder the abdominal exam which is otherwise nontender) Back Exam: Normal Inspection. No: CVA Tenderness (L), CVA Tenderness (R) Neurological: Alert, Oriented, Normal Cognition Course - Vital Signs Last Recorded V/S: Last Vital Signs Temp 35.8 C L 02/01/21 01:38 Pulse 68 01/31/21 20:51 Resp BP 130/68 01/31/21 20:51 Pulse Ox 97 01/31/21 20:51 - Orders/Labs/Meds Orders: Active Orders 24 hr Category Date Time Status Abdomen Ltd [US] Stat Exams 01/31/21 23:01 Taken Labs: Laboratory Tests 01/31/21 01/31/21 01/31/21 Range/Units 21:34 21:34 22:03 WBC 13.39 H (3.98-10.04) K/mm3 RBC 4.17 (3.98-5.22) M/mm3 Hgb 13.0 (11.2-15.7) gm/dl Hct 39.4 (34.1-44.9) % MCV 94.5 (79.4-94.8) fl MCH 31.2 (25.6-32.2) pg MCHC 33.0 (32.2-35.5) g/dl RDW Std Deviation 44.1 (36.4-46.3) fL Plt Count 271 D (182-369) K/mm3 MPV 10.6 (9.4-12.3) fl Neut % (Auto) 69.8 (34.0-71.1) % Lymph % (Auto) 19.9 (19.3-51.7) % [place] % (Auto) 9.6 (4.7-12.5) % Eos % (Auto) 0.2 L (0.7-5.8) Baso % (Auto) 0.3 (0.1-1.2) % Neut # (Auto) 9.34 H (1.56-6.13) K/mm3 Lymph # (Auto) 2.67 (1.18-3.74) K/mm3 [place] # (Auto) 1.28 H (0.24-0.36) K/mm3 Eos # (Auto) 0.03 L (0.04-0.36) K/mm3 Baso # (Auto) 0.04 (0.01-0.08) K/mm3 Manual Slide Review Normal smear Sodium 146 H (136-145) mEq/L Potassium 4.1 (3.5-5.1) mEq/L Chloride 109 H (98-107) mEq/L Carbon Dioxide 27 (21-32) mEq/L Anion Gap 14.1 (5-15) BUN 19 H (7-18) mg/dL Creatinine 0.9 (0.55-1.02) mg/dL Est Cr Clr Drug Dosing 107.39 mL/min Estimated GFR (MDRD) > 60 (>60) mL/min BUN/Creatinine Ratio 21.1 H (14-18) Glucose 94 (70-99) mg/dL Calcium 8.8 (8.5-10.1) mg/dL Total Bilirubin 0.2 (0.2-1.0) mg/dL AST 11 L (15-37) U/L ALT 21 (14-59) U/L Alkaline Phosphatase 68 (46-116) U/L Total Protein 7.0 (6.4-8.2) g/dl Albumin 3.8 (3.4-5.0) g/dl Globulin 3.2 gm/dL Albumin/Globulin Ratio 1.2 (1-2) Lipase 200 (73-393) U/L Urine Color Yellow (Yellow) Urine Appearance Clear (Clear) Urine pH 6.5 (5.0-8.0) Ur Specific [place] > or = 1.030 (1.005-1.030) Urine Protein Negative (Negative) Urine Glucose (UA) Negative (Negative) Urine Ketones Negative (Negative) Urine Occult Blood Negative (Negative) Urine Nitrite Negative (Negative) Urine Bilirubin Negative (Negative) Urine Urobilinogen 0.2 (0.2-1.0) Ur Leukocyte Esterase Negative (Negative) Urine HCG, Qual (NEGATIVE) 01/31/21 Range/Units 22:03 WBC (3.98-10.04) K/mm3 RBC (3.98-5.22) M/mm3 Hgb (11.2-15.7) gm/dl Hct (34.1-44.9) % MCV (79.4-94.8) fl MCH (25.6-32.2) pg MCHC (32.2-35.5) g/dl RDW Std Deviation (36.4-46.3) fL Plt Count (182-369) K/mm3 MPV (9.4-12.3) fl Neut % (Auto) (34.0-71.1) % Lymph % (Auto) (19.3-51.7) % [place] % (Auto) (4.7-12.5) % Eos % (Auto) (0.7-5.8) Baso % (Auto) (0.1-1.2) % Neut # (Auto) (1.56-6.13) K/mm3 Lymph # (Auto) (1.18-3.74) K/mm3 [place] # (Auto) (0.24-0.36) K/mm3 Eos # (Auto) (0.04-0.36) K/mm3 Baso # (Auto) (0.01-0.08) K/mm3 Manual Slide Review Sodium (136-145) mEq/L Potassium (3.5-5.1) mEq/L Chloride (98-107) mEq/L Carbon Dioxide (21-32) mEq/L Anion Gap (5-15) BUN (7-18) mg/dL Creatinine (0.55-1.02) mg/dL Est Cr Clr Drug Dosing mL/min Estimated GFR (MDRD) (>60) mL/min BUN/Creatinine Ratio (14-18) Glucose (70-99) mg/dL Calcium (8.5-10.1) mg/dL Total Bilirubin (0.2-1.0) mg/dL AST (15-37) U/L ALT (14-59) U/L Alkaline Phosphatase (46-116) U/L Total Protein (6.4-8.2) g/dl Albumin (3.4-5.0) g/dl Globulin gm/dL Albumin/Globulin Ratio (1-2) Lipase (73-393) U/L Urine Color (Yellow) Urine Appearance (Clear) Urine pH (5.0-8.0) Ur Specific [place] (1.005-1.030) Urine Protein (Negative) Urine Glucose (UA) (Negative) Urine Ketones (Negative) Urine Occult Blood (Negative) Urine Nitrite (Negative) Urine Bilirubin (Negative) Urine Urobilinogen (0.2-1.0) Ur Leukocyte Esterase (Negative) Urine HCG, Qual Negative (NEGATIVE) Meds: Medications Discontinued Medications Generic Name Dose Route Start Last Admin Trade Name Freq PRN Reason Stop Dose Admin Hydrocodone Bitart/Acetaminophen 2 tab 02/01/21 01:42 Acetaminophen/Hydrocodone 325-5 Mg Tab PO 02/01/21 01:43 ONETIME ONE Hydromorphone HCl 0.5 mg 01/31/21 23:02 01/31/21 23:24 Hydromorphone 0.5 Mg/0.5 Ml Syringe IVPUSH 01/31/21 23:03 0.5 mg ONETIME ONE Administration Ondansetron HCl 4 mg 02/01/21 01:42 Ondansetron 4 Mg Tab.Dis PO 02/01/21 01:43 ONETIME ONE - Re-Assessments/Exams Free Text/Narrative Re-Assessment/Exam: White count is slightly elevated chemistries unrevealing gallbladder ultrasound ordered. 02/01/21 01:41 Gallbladder ultrasound shows cholelithiasis with gallbladder distention no gallbladder wall thickening and the common bile duct appears normal. Reviewed labs, the minimally white count, vitals and the ultrasound report with Dr. Hurtado who would like to see her in the office later today. Departure - Departure Time of Disposition: 01:44 Disposition: Home, Self-Care 01 Clinical Impression: Chest wall pain, Abdominal pain, Cholelithiasis - Discharge Information Referrals: Jing Reilly NP [Primary Care Provider] - Maragrita Villarreal MD [Physician] - Forms: ED Department Discharge Additional Instructions: Return to the emergency room with any questions problems or worsening symptoms. Follow-up with Dr. Hurtado later today. You were sent home with 1 nausea medication use only if needed and to hydrocodone take 1-2 every 6 hours as needed for discomfort. You have also had a prescription for these sent to [facility] [place] [employer]. After using the pain medication allow [address] or returning to work. Sepsis Event Note (ED) - Focused Exam Vital Signs: Vital Signs Temp Pulse BP Pulse Ox 02/01/21 01:38 35.8 C L 01/31/21 20:51 36.1 C 68 130/68 97 - My Orders Last 24 Hours: My Active Orders 01/31/21 23:01 Abdomen Ltd [US] Stat - Assessment/Plan Last 24 Hours: My Active Orders 01/31/21 23:01 Abdomen Ltd [US] Stat
[2021-01-31] MEDS ORDERED: HYDROmorphone 0.5 MG/0.5 ML Syringe IVPUSH ONE (23:02)
[2021-02-01] MEDS ORDERED: Acetaminophen/HYDROcodone 325-5 MG Tab PO ONE (01:42)
[2021-02-01] MEDS ORDERED: Ondansetron 4 MG Tab.DIS PO ONE (01:42)
--- NOTE | 2021-02-01 09:15 | US ---
Limited abdominal ultrasound: Multiple real-time images were obtained of the upper right abdomen. Comparison: No prior abdominal imaging is available. Findings: Liver shows no focal abnormality. Multiple gallstones are seen within the gallbladder. No gallbladder wall thickening or biliary duct dilatation is seen. Visualized portions of the pancreas show no discrete abnormality. Portal vein shows normal hepatopedal flow. Impression: 1. Multiple gallstones. No gallbladder wall thickening or biliary duct dilatation is seen. 2. Other portions of the right upper quadrant abdominal ultrasound appear within normal limits. Diagnostic code #2 I agree with preliminary report from [facility], finalized on 02/01/21, 2:31 AM CDT, code 1
== END 2021-02-01 01:58 | disposition home or self-care (01) ==
LOC: JD.ED 20:21
DX: K80.20 Calculus of gallbladder without cholecystitis without obstruction (principal); R07.89 Other chest pain; E66.9 Obesity, unspecified; Z68.38 Body mass index [BMI] 38.0-38.9, adult; Z72.0 Tobacco use; Z88.1 Allergy status to other antibiotic agents; Z88.0 Allergy status to penicillin
CPT/HCPCS: 36415; 76705; 80053; 81003; 81025; 83690; 85025; 96374; 99284; A9270; J1170; 99283

== ENCOUNTER 2021-08-23 12:01 | Emergency (ER) | payer MEDICAID ==
[2021-08-23] MEDS ORDERED: Sodium Chloride 0.9% 10 ML Syringe FLUSH PRN ×2 (13:04→13:07)
[2021-08-23] MEDS ORDERED: Iopamidol 755 Mg/ML 100 ML Bottle IVPUSH ONE (13:07)
[2021-08-23] MEDS ORDERED: Sodium Chloride 0.9% 100 ML IV SCH (13:15)
== END 2021-08-23 15:17 | disposition home or self-care (01) ==
LOC: JD.ED 12:01
DX: J18.9 Pneumonia, unspecified organism (principal); E66.9 Obesity, unspecified; Z68.38 Body mass index [BMI] 38.0-38.9, adult; Z88.1 Allergy status to other antibiotic agents; Z88.0 Allergy status to penicillin; Z72.0 Tobacco use
CPT/HCPCS: 36415; 71275; 80053; 84484; 93005; 99285; Q9967; 93010